=== PATIENT | female | born 1980 | race Caucasian/White ===

== ENCOUNTER 2016-11-29 05:55 | Inpatient (IN) | payer BC, OTHER ==
[2016-11-29] MEDS ORDERED: SODIUM CHLORIDE 0.9% 1,000 ML IV STA ×2 (06:20)
[2016-11-29] MEDS ORDERED: ONDANSETRON 4 MG/2 ML VIAL IVP STA (06:20)
[2016-11-29] MEDS ORDERED: MORPHINE SULFATE 4 MG/ML SYRINGE IV STA (06:20)
[2016-11-29] MEDS ORDERED: FAMOTIDINE 20 MG/2 ML VIAL IV STA (06:21)
--- NOTE | 2016-11-29 06:24 | ED ---
Abdominal Pain HPI - General Source: patient, RN notes reviewed Mode of arrival: ambulatory Limitations: no limitations - History of Present Illness MD Complaint: abdominal pain, flank pain <Kev Rincon - Last Filed: 11/29/16 06:59> <Jean Paul Monson - Last Filed: 11/29/16 09:34> - General Chief Complaint: GI Bleed Stated Complaint: vomiting blood, abd pain Time Seen by Provider: 11/29/16 06:10 - History of Present Illness Initial Comments: This is a 36-year-old female history of non-Hodgkin's lymphoma stage II several years ago who is had 14 days of epigastric pain that they have very bad. Severe radiating to the right flank area. She had nausea and vomiting and vomited so hard she states she vomited up 2 small quarter size spots of blood. She states the pain is burning in nature and again radiates up from the umbilicus up into the lower chest and right flank area. She has no known history of gallbladder disease no known history of ulcers she does occasionally drink alcohol and smokes a half a pack of cigarettes per day. (Kev Rincon) - Related Data Previous Rx's Medication Instructions Recorded traMADol HCL [Ultram] 50 mg PO Q4HR PRN #30 tab 01/24/16 Allergies Allergy/AdvReac Type Severity Reaction Status Date / Time Penicillins Allergy Anaphylaxis Verified 11/29/16 06:07 tetanus and diphtheria Allergy Swelling Verified 11/29/16 06:07 toxoids [tetanus & diphtheria toxoids] Review of Systems ROS Other: All systems not noted in ROS Statement are negative. <Kev Rincon - Last Filed: 11/29/16 06:59> ROS Other: All systems not noted in ROS Statement are negative. <Jean Paul Monson - Last Filed: 11/29/16 09:34> ROS Statement: Those systems with pertinent positive or pertinent negative responses have been documented in the HPI. 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 Pt states she does not take any meds for her lupus for 2 years since she has no insurance History of Any Multi-Drug Resistant Organisms: None Reported Past Surgical History: Appendectomy, Tubal Ligation Additional Past Surgical History / Comment(s): eye -muscle pin for lazy eye, ORAL SX TO REMOVED 3 TEETH AND INFECTED TISSUE HAD DRAINAGE TUBE. Past Anesthesia/Blood Transfusion Reactions: No Reported Reaction Past Psychological History: No Psychological Hx Reported Smoking Status: Current every day smoker Past Alcohol Use History: Occasional Past Drug Use History: None Reported - Past Family History Mother Additional Family Medical History / Comment(s): mom has CP and heart MURMUR Father Family Medical History: Hypertension Additional Family Medical History / Comment(s): 2 heart attacks, diverticulitis <Kev Rincon - Last Filed: 11/29/16 06:59> General Exam Limitations: no limitations General appearance: alert, anxious, in distress Head exam: Present: atraumatic, normocephalic, normal inspection Eye exam: Present: normal appearance, PERRL, EOMI. Absent: scleral icterus, conjunctival injection, periorbital swelling ENT exam: Present: mucous membranes dry Neck exam: Present: normal inspection. Absent: tenderness, meningismus, lymphadenopathy Respiratory exam: Present: normal lung sounds bilaterally, chest wall tenderness (Some tenderness palpation over the xiphoid and costochondral margin on the right.). Absent: respiratory distress, wheezes, rales, rhonchi, stridor Cardiovascular Exam: Present: regular rate, normal rhythm, normal heart sounds. Absent: systolic murmur, diastolic murmur, rubs, gallop, clicks GI/Abdominal exam: Present: soft, tenderness (Some epigastric tenderness to right upper quadrant tenderness patient will not allow me to fully examine her abdomen however.), normal bowel sounds. Absent: distended, guarding, rebound, rigid Rectal exam: Present: deferred Extremities exam: Present: normal inspection, full ROM, normal capillary refill. Absent: tenderness, pedal edema, joint swelling, calf tenderness Back exam: Present: normal inspection Neurological exam: Present: alert, oriented X3, CN II-XII intact Psychiatric exam: Present: normal affect, anxious Skin exam: Present: warm, dry, intact, normal color. Absent: rash <Kev Rincon - Last Filed: 11/29/16 06:59> <Jean Paul Monson - Last Filed: 11/29/16 09:34> - General Exam Comments Initial Comments: This is a well-developed well-nourished awake alert oriented history female ( SergeyKev) Course <Kev Rincon - Last Filed: 11/29/16 06:59> <Jean Paul Monson - Last Filed: 11/29/16 09:34> Vital Signs 11/29/16 11/29/16 11/29/16 06:05 06:20 06:37 Temperature 98 F Pulse Rate 81 68 Respiratory 24 16 Rate Blood Pressure 139/92 157/100 132/83 O2 Sat by Pulse 99 Oximetry 11/29/16 11/29/16 07:34 09:15 Temperature 98.5 F 97.5 F L Pulse Rate 66 72 Respiratory 22 18 Rate Blood Pressure 130/62 118/57 O2 Sat by Pulse 97 95 Oximetry - Reevaluation(s) Reevaluation #1: 11/29/16 06:59 The patient's care will be endorsed to Dr. Monson who will make the final disposition. (Kev Rincon) Medical Decision Making - Lab Data Result diagrams: 11/29/16 06:14 11/29/16 06:14 <Kev Rincon - Last Filed: 11/29/16 06:59> - Lab Data Result diagrams: 11/29/16 06:14 11/29/16 06:14 - Radiology Data Radiology results: report reviewed (Gallbladder ultrasound positive for cholelithiasis) <Jean Paul Monson - Last Filed: 11/29/16 09:34> - Medical Decision Making Patient was reevaluated following pain medication and has moderate tenderness right upper quadrant and epigastric region. Ultrasound positive for cholelithiasis. Case discussed with Dr. Man, who will admit for hospital call. Patient updated. (Jean Paul Monson) - Lab Data Lab Results 11/29/16 11/29/16 11/29/16 Range/Units 06:14 06:14 06:14 WBC 15.3 H (3.8-10.6) k/uL RBC 4.97 (3.80-5.40) m/uL Hgb 15.6 (11.4-16.0) gm/dL Hct 45.4 (34.0-46.0) % MCV 91.3 (80.0-100.0) fL MCH 31.3 (25.0-35.0) pg MCHC 34.3 (31.0-37.0) g/dL RDW 13.8 (11.5-15.5) % Plt Count 326 (150-450) k/uL Neutrophils % 80 % Lymphocytes % 13 % Monocytes % 4 % Eosinophils % 1 % Basophils % 0 % Neutrophils # 12.3 H (1.3-7.7) k/uL Lymphocytes # 2.0 (1.0-4.8) k/uL Monocytes # 0.6 (0-1.0) k/uL Eosinophils # 0.2 (0-0.7) k/uL Basophils # 0.1 (0-0.2) k/uL PT (9.0-12.0) sec INR (<1.2) APTT (22.0-30.0) sec Sodium 140 (137-145) mmol/L Potassium 4.1 (3.5-5.1) mmol/L Chloride 104 (98-107) mmol/L Carbon Dioxide 23 (22-30) mmol/L Anion Gap 13 mmol/L BUN 10 (7-17) mg/dL Creatinine 0.54 (0.52-1.04) mg/dL Est GFR (MDRD) Af Amer >60 (>60 ml/min/1.73 sqM) Est GFR (MDRD) Non-Af >60 (>60 ml/min/1.73 sqM) Glucose 101 H (74-99) mg/dL Calcium 9.3 (8.4-10.2) mg/dL Total Bilirubin 0.7 (0.2-1.3) mg/dL AST 16 (14-36) U/L ALT 26 (9-52) U/L Alkaline Phosphatase 52 (38-126) U/L Total Creatine Kinase 33 (30-135) U/L CK-MB (CK-2) 0.4 (0.0-2.4) ng/mL CK-MB (CK-2) Rel Index 1.2 Troponin I <0.012 (0.000-0.034) ng/mL Total Protein 7.3 (6.3-8.2) g/dL Albumin 4.5 (3.5-5.0) g/dL Amylase 45 (30-110) U/L Lipase 60 (23-300) U/L Urine Color Urine Appearance (Clear) Urine pH (5.0-8.0) Ur Specific [place] (1.001-1.035) Urine Protein (Negative) Urine Glucose (UA) (Negative) Urine Ketones (Negative) Urine Blood (Negative) Urine Nitrite (Negative) Urine Bilirubin (Negative) Urine Urobilinogen (<2.0) mg/dL Ur Leukocyte Esterase (Negative) Blood Type Blood Type Recheck Antibody Screen Spec Expiration Date 11/29/16 11/29/16 11/29/16 Range/Units 06:14 06:14 06:40 WBC (3.8-10.6) k/uL RBC (3.80-5.40) m/uL Hgb (11.4-16.0) gm/dL Hct (34.0-46.0) % MCV (80.0-100.0) fL MCH (25.0-35.0) pg MCHC (31.0-37.0) g/dL RDW (11.5-15.5) % Plt Count (150-450) k/uL Neutrophils % % Lymphocytes % % Monocytes % % Eosinophils % % Basophils % % Neutrophils # (1.3-7.7) k/uL Lymphocytes # (1.0-4.8) k/uL Monocytes # (0-1.0) k/uL Eosinophils # (0-0.7) k/uL Basophils # (0-0.2) k/uL PT 10.0 (9.0-12.0) sec INR 1.0 (<1.2) APTT 24.4 (22.0-30.0) sec Sodium (137-145) mmol/L Potassium (3.5-5.1) mmol/L Chloride (98-107) mmol/L Carbon Dioxide (22-30) mmol/L Anion Gap mmol/L BUN (7-17) mg/dL Creatinine (0.52-1.04) mg/dL Est GFR (MDRD) Af Amer (>60 ml/min/1.73 sqM) Est GFR (MDRD) Non-Af (>60 ml/min/1.73 sqM) Glucose (74-99) mg/dL Calcium (8.4-10.2) mg/dL Total Bilirubin (0.2-1.3) mg/dL AST (14-36) U/L ALT (9-52) U/L Alkaline Phosphatase (38-126) U/L Total Creatine Kinase (30-135) U/L CK-MB (CK-2) (0.0-2.4) ng/mL CK-MB (CK-2) Rel Index Troponin I (0.000-0.034) ng/mL Total Protein (6.3-8.2) g/dL Albumin (3.5-5.0) g/dL Amylase (30-110) U/L Lipase (23-300) U/L Urine Color Yellow Urine Appearance Clear (Clear) Urine pH 8.0 (5.0-8.0) Ur Specific [place] 1.015 (1.001-1.035) Urine Protein Negative (Negative) Urine Glucose (UA) Negative (Negative) Urine Ketones Negative (Negative) Urine Blood Negative (Negative) Urine Nitrite Negative (Negative) Urine Bilirubin Negative (Negative) Urine Urobilinogen <2.0 (<2.0) mg/dL Ur Leukocyte Esterase Negative (Negative) Blood Type A Positive Blood Type Recheck No Antibody Screen NEGATIVE Spec Expiration Date 12/02/2016 - 2314 Disposition <Kev Rincon - Last Filed: 11/29/16 06:59> Decision Time: 09:34 <Jean Paul Monson - Last Filed: 11/29/16 09:34> Clinical Impression: Abdominal pain, Cholelithiasis Disposition: ADMITTED IP TO THIS [facility] Referrals: Emily Kiran DO [Primary Care Provider] - 1-2 days
[2016-11-29 06:42] LABS: Basophils # (A) 0.1 k/uL (0-0.2); Basophils % (A) 0 %; CH 32.3; CHCM 35.5; Eosinophils # (A) 0.2 k/uL (0-0.7); Eosinophils % (A) 1 %; HCT 45.4 % (34.0-46.0); HDW 2.38; HGB 15.6 gm/dL (11.4-16.0); Luc # (Auto) 0.08; Luc % (Auto) 1; Lymphocytes % (A) 13 %; MCH 31.3 pg (25.0-35.0); MCHC 34.3 g/dL (31.0-37.0); MCV 91.3 fL (80.0-100.0); Mean Platelet Volume 7.5; Monocytes # (A) 0.6 k/uL (0-1.0); Monocytes % (A) 4 %; Neutrophils # (A) 12.3 k/uL (1.3-7.7); Neutrophils % (A) 80 %; RBC 4.97 m/uL (3.80-5.40); RDW 13.8 % (11.5-15.5); WBC 15.3 k/uL (3.8-10.6); WBC (Perox) 15.35
[2016-11-29 06:51] LABS: Partial Thromboplastin Time 24.4 sec (22.0-30.0)
[2016-11-29 06:53] LABS: ALT 26 U/L (9-52); AST 16 U/L (14-36); Alkaline Phosphatase 52 U/L (38-126); Amylase 45 U/L (30-110); Anion Gap 13 mmol/L; Blood Urea Nitrogen 10 mg/dL (7-17); Calcium 9.3 mg/dL (8.4-10.2); Carbon Dioxide 23 mmol/L (22-30); Chloride 104 mmol/L (98-107); Glucose 101 mg/dL (74-99); Non-African American GFR(MDRD) >60 (>60 ml/min/1.73 sqM); Potassium 4.1 mmol/L (3.5-5.1); Sodium 140 mmol/L (137-145); Total Bilirubin 0.7 mg/dL (0.2-1.3); Total Protein 7.3 g/dL (6.3-8.2)
[2016-11-29 06:56] LABS: Appearance,Urine Clear (Clear); Bilirubin,Urine Negative (Negative); Glucose,Urine (UA) Negative (Negative); Ketones,Urine Negative (Negative); Leukocyte Esterase,Urine Negative (Negative); Nitrite,Urine Negative (Negative); Protein,Urine Negative (Negative); Specific Gravity,Urine 1.015 (1.001-1.035); UA Billing (MACRO vs. MICRO) CHEM; Urobilinogen,Urine <2.0 mg/dL (<2.0)
[2016-11-29 07:10] LABS: Creatine Kinase 33 U/L (30-135)
[2016-11-29] MEDS ORDERED: HYDROmorphone 1 MG/ML 1 ML SYRINGE IVP STA (07:18)
[2016-11-29 07:23] LABS: Creatine Kinase MB 0.4 ng/mL (0.0-2.4); Troponin I <0.012 ng/mL (0.000-0.034)
--- NOTE | 2016-11-29 09:21 | US ---
EXAMINATION TYPE: US gallbladder DATE OF EXAM: 11/29/2016 COMPARISON: CLINICAL HISTORY: Pain. N/V. Hx of non-Hodgkin's lymphoma. EXAM MEASUREMENTS: Liver Length: 18.6 cm Gallbladder Wall: 0.2 cm CBD: 0.5 cm CHD: 0.7 cm Right Kidney: 11.8 x 6.1 x 4.6 cm Pancreas: wnl. main pancreatic duct = 1.3 mm Liver: enlarged. No focal lesions or masses seen. Gallbladder: Two echogenic foci seen with shadowing, the one at neck measuring = 2.0 x 1.8 cm and di d not appear to move when patient turned LLD. Sludge seen. Evidence for sonographic Angulo's sign: neg CBD: CHD appears dilated. Right Kidney: wnl The pancreas is unremarkable. The liver is prominent measuring 18.6 cm. There are 2 prominent gallstones within the gallbladder. The gallbladder wall measures 2 mm. The dist al common hepatic duct measures 7 mm. There is no sonographic Angulo's sign. The right kidney is unremarkable. Limited views of the aorta and IVC are normal. IMPRESSION: CHOLELITHIASIS.
[2016-11-29] MEDS ORDERED: ONDANSETRON 4 MG/2 ML VIAL IVP PRN (09:34)
[2016-11-29] MEDS ORDERED: NALOXONE 0.4 MG/ML 1 ML VIAL IV PRN (09:34)
[2016-11-29] MEDS ORDERED: SODIUM CHLORIDE 0.9% 1,000 ML IV SCH (09:45)
[2016-11-29] MEDS: HYDROmorphone 1 MG/ML 1 ML SYRINGE IV PRN ×3 (11:04→20:12)
--- NOTE | 2016-11-29 12:19 | P.PN ---
Progress Note - Text Please see full dictated H&P. Patient presents with over a 24-hour history of right upper quadrant abdominal pain. She had a kuhn lettuce tomato subway sandwich within 2-3 hours had severe epigastric and right upper quadrant abdominal pain. She had no relief of her pain after taking Motrin as well as naproxen. Her pain grew worse since her presentation to the emergency room. Laboratory exam consistent with leukocytosis. On exam she has localized right upper quadrant peritonitis. I personally reviewed her ultrasound consistent with the stone impacted along the infundibulum. Multiple large gallstones identified. Clinical features including diagnostic studies consistent with acute cholecystitis. Benefits and risks of laparoscopic cholecystectomy described. Will start antibiotics. Nothing by mouth after minute for surgery in the morning.
[2016-11-29] MEDS: PANTOPRAZOLE 40 MG/10 ML VIAL IVP SCH (13:00)
[2016-11-29] MEDS: LEVOFLOXACIN 500MG-D5W PMX 500 MG in DEXTROSE/WATER 1 100ML.BAG IVPB SCH (13:00)
[2016-11-29] MEDS: METOCLOPRAMIDE 5 MG/ML 2 ML VIAL IVP PRN (20:10)
[2016-11-30] MEDS: METOCLOPRAMIDE 5 MG/ML 2 ML VIAL IVP PRN (06:38)
--- NOTE | 2016-11-30 08:00 | P.GSHP ---
History of Present Illness H&P Date: 11/29/16 CHIEF COMPLAINT: Cholecystitis HISTORY OF PRESENT ILLNESS: The patient is a 36-year-old female who presents with history of epigastric including right upper quadrant abdominal pain. She underwent diagnostic studies for her gallbladder. Separately her clinical picture was consistent with cholecystitis. Now she presents for surgical intervention. PAST MEDICAL HISTORY: Please see list PAST SURGICAL HISTORY: Please see list MEDICATIONS: Please see list ALLERGIES: Denies. SOCIAL HISTORY: No illicit drug use or recent tobacco use FAMILY HISTORY: Pertinent for gallbladder disease REVIEW OF ORGAN SYSTEMS: CONSTITUTIONAL: No reports of fevers or chills. HEENT: Denies any troubles with the vision or hearing. ENDOCRINE: No reports of hypothyroidism. No diabetes. RESPIRATORY: No recent pneumonias. CARDIOVASCULAR: Denies chest pain or palpitations GI: No blood in stools or constipation. MUSCULOSKELETAL: Has occasional joint pain including back pain. NEURO: No seizure disorders or headaches. No recent stroke. PSYCH: No depression or suicidal ideation. HEMATOLOGIC: No personal or family history of DVTs or pulmonary emboli. PHYSICAL EXAM: VITAL SIGNS: Afebrile vital signs stable GENERAL: Well-developed pleasant in no acute distress. HEENT: No scleral icterus. Extraocular movements grossly intact. Moist buccal mucosa. NECK: Supple without lymphadenopathy. CHEST: Unlabored respirations. Equal bilateral excursions. CARDIOVASCULAR: Regular rate regular rhythm rhythm. Distal 2+ pulses. ABDOMEN: Soft, nondistended. Tender along the epigastrium and right upper quadrant. MUSCULOSKELETAL: No clubbing, cyanosis, or edema. NEURO: Cranial nerves II to XII within normal limits. No focal or lateralizing signs. PSYCH: Alert and oriented to person, place and time. ASSESSMENT: 1. Epigastric and right upper quadrant abdominal pain 2. Chronic cholecystitis 3. Symptomatic gallstones. PLAN: 1. Will need a laparoscopic cholecystectomy possible open. Benefits and risks were described. 2. Heparin for DVT prophylaxis 5000 units. 3. Antibiotic prophylaxis. 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 Pt states she does not take any meds for her lupus for 2 years since she has no insurance History of Any Multi-Drug Resistant Organisms: None Reported Past Surgical History: Appendectomy, Tubal Ligation Additional Past Surgical History / Comment(s): eye -muscle pin for lazy eye, ORAL SX TO REMOVED 3 TEETH AND INFECTED TISSUE HAD DRAINAGE TUBE. Past Anesthesia/Blood Transfusion Reactions: No Reported Reaction Past Psychological History: No Psychological Hx Reported Additional Psychological History / Comment(s): LIVES AT HOME WITH SPOUSE AND 5 CHILDREN. Smoking Status: Current every day smoker Past Alcohol Use History: Occasional Additional Past Alcohol Use History / Comment(s): STARTED SMOKING AT AGE 18- SMOKES < 1/2 PPD Past Drug Use History: None Reported - Past Family History Mother Additional Family Medical History / Comment(s): mom has CP and heart MURMUR Father Family Medical History: Hypertension Additional Family Medical History / Comment(s): 2 heart attacks, diverticulitis Medications and Allergies Allergies Allergy/AdvReac Type Severity Reaction Status Date / Time Penicillins Allergy Anaphylaxis Verified 11/29/16 10:45 tetanus and diphtheria Allergy Swelling Verified 11/29/16 10:45 toxoids [tetanus & diphtheria toxoids] Surgical - Exam Vital Signs Temp Pulse Resp BP Pulse Ox 98 F 81 24 139/92 99 11/29/16 06:05 11/29/16 06:05 11/29/16 06:05 11/29/16 06:05 11/29/16 06:05 Results - Labs 11/29/16 06:14 11/29/16 06:14 Abnormal Lab Results - Last 24 Hours (Table) 11/29/16 11/29/16 Range/Units 06:14 06:14 WBC 15.3 H (3.8-10.6) k/uL Neutrophils # 12.3 H (1.3-7.7) k/uL Glucose 101 H (74-99) mg/dL Diabetes panel 11/29/16 Range/Units 06:14 Sodium 140 (137-145) mmol/L Potassium 4.1 (3.5-5.1) mmol/L Chloride 104 (98-107) mmol/L Carbon Dioxide 23 (22-30) mmol/L BUN 10 (7-17) mg/dL Creatinine 0.54 (0.52-1.04) mg/dL Glucose 101 H (74-99) mg/dL Calcium 9.3 (8.4-10.2) mg/dL AST 16 (14-36) U/L ALT 26 (9-52) U/L Alkaline Phosphatase 52 (38-126) U/L Total Protein 7.3 (6.3-8.2) g/dL Albumin 4.5 (3.5-5.0) g/dL Calcium panel 11/29/16 Range/Units 06:14 Calcium 9.3 (8.4-10.2) mg/dL Albumin 4.5 (3.5-5.0) g/dL Pituitary panel 11/29/16 Range/Units 06:14 Sodium 140 (137-145) mmol/L Potassium 4.1 (3.5-5.1) mmol/L Chloride 104 (98-107) mmol/L Carbon Dioxide 23 (22-30) mmol/L BUN 10 (7-17) mg/dL Creatinine 0.54 (0.52-1.04) mg/dL Glucose 101 H (74-99) mg/dL Calcium 9.3 (8.4-10.2) mg/dL Adrenal panel 11/29/16 Range/Units 06:14 Sodium 140 (137-145) mmol/L Potassium 4.1 (3.5-5.1) mmol/L Chloride 104 (98-107) mmol/L Carbon Dioxide 23 (22-30) mmol/L BUN 10 (7-17) mg/dL Creatinine 0.54 (0.52-1.04) mg/dL Glucose 101 H (74-99) mg/dL Calcium 9.3 (8.4-10.2) mg/dL Total Bilirubin 0.7 (0.2-1.3) mg/dL AST 16 (14-36) U/L ALT 26 (9-52) U/L Alkaline Phosphatase 52 (38-126) U/L Total Protein 7.3 (6.3-8.2) g/dL Albumin 4.5 (3.5-5.0) g/dL
--- NOTE | 2016-11-30 08:03 | P.PN ---
Progress Note - Text Patient seen and evaluated. We'll proceed with laparoscopic cholecystectomy.
[2016-11-30 08:05] LABS: Basophils % (A) 0 %; CH 31.5; CHCM 34.6; Eosinophils # (A) 0.2 k/uL (0-0.7); Eosinophils % (A) 3 %; HCT 36.4 % (34.0-46.0); HDW 2.42; Luc # (Auto) 0.09; Luc % (Auto) 1; Lymphocytes # (A) 1.9 k/uL (1.0-4.8); Lymphocytes % (A) 29 %; MCH 31.7 pg (25.0-35.0); MCHC 34.6 g/dL (31.0-37.0); MCV 91.6 fL (80.0-100.0); Mean Platelet Volume 6.7; Monocytes # (A) 0.4 k/uL (0-1.0); Monocytes % (A) 5 %; Neutrophils # (A) 4.1 k/uL (1.3-7.7); Neutrophils % (A) 62 %; RBC 3.97 m/uL (3.80-5.40); RDW 12.8 % (11.5-15.5); WBC 6.6 k/uL (3.8-10.6); WBC (Perox) 7.01
[2016-11-30] MEDS ORDERED: fentaNYL (PF) 50 MCG/ML 2 ML AMP ONE (08:10)
[2016-11-30] MEDS ORDERED: GLYCOPYRROLATE 0.2 MG/ML 2 ML VIAL ONE (08:10)
[2016-11-30] MEDS ORDERED: LIDOCAINE 1% INJ 10MG/ML (20 ML MDV) ONE (08:10)
[2016-11-30] MEDS ORDERED: IV FLUID CONTINUATION 1,000 ML IV ONE (08:10)
[2016-11-30] MEDS ORDERED: SUCCINYLCHOLINE CHLORIDE 100 MG/5 ML SYR IV ONE (08:10)
[2016-11-30] MEDS ORDERED: PROPOFOL 10 MG/ML 20 ML VIAL IV ONE (08:10)
[2016-11-30] MEDS ORDERED: MIDAZOLAM 2 MG/2 ML VIAL ONE (08:10)
[2016-11-30] MEDS ORDERED: ONDANSETRON 4 MG/2 ML VIAL ONE (08:10)
[2016-11-30] MEDS ORDERED: NEOSTIGMINE 1 MG/ML 10 ML VIAL ONE (08:10)
[2016-11-30] MEDS ORDERED: KETOROLAC 30 MG/ML 1 ML VIAL ONE (08:10)
[2016-11-30] MEDS ORDERED: ROCURONIUM BROMIDE 10 MG/ML 10 ML VIAL IV ONE (08:10)
[2016-11-30 08:12] LABS: HGB 12.6 gm/dL (11.4-16.0)
[2016-11-30 08:26] LABS: ALT 30 U/L (9-52); AST 21 U/L (14-36); Alkaline Phosphatase 43 U/L (38-126); Anion Gap 8 mmol/L; Blood Urea Nitrogen 7 mg/dL (7-17); Calcium 8.3 mg/dL (8.4-10.2); Carbon Dioxide 23 mmol/L (22-30); Chloride 108 mmol/L (98-107); Glucose 88 mg/dL (74-99); Non-African American GFR(MDRD) >60 (>60 ml/min/1.73 sqM); Potassium 3.8 mmol/L (3.5-5.1); Sodium 139 mmol/L (137-145); Total Bilirubin 1.2 mg/dL (0.2-1.3); Total Protein 5.5 g/dL (6.3-8.2)
[2016-11-30] MEDS ORDERED: BUPIVACAINE (PF) 0.25% 30 ML VIAL SQ ONE ×2 (08:29)
[2016-11-30] MEDS ORDERED: LACTATED RINGERS 1,000 ML IV ONE (08:38)
[2016-11-30] MEDS ORDERED: PANTOPRAZOLE 40 MG/10 ML VIAL IV SCH (09:00)
[2016-11-30] MEDS: PANTOPRAZOLE 40 MG/10 ML VIAL IVP SCH (09:00)
[2016-11-30] MEDS ORDERED: HYDROcodone/APAP 5-325MG 1 EACH TAB PO PRN (09:27)
--- NOTE | 2016-11-30 09:27 | P.OP ---
Date of Procedure: 11/30/16 Preoperative Diagnosis: Postoperative Diagnosis: Procedure(s) Performed: Implants: Indications for Procedure: Operative Findings: Description of Procedure: SURGEON: DEIRDRE MEJIAS MD [employer] COACH: None. PREOPERATIVE DIAGNOSES: 1. Acute cholecystitis. 2. Leukocytosis. 3. Right upper quadrant peritonitis. 4. Symptomatic gallstones. 5. History of tobacco abuse. 6. Pituitary tumor. 7. Lupus. 8. Non-Hodgkin's lymphoma, family history. POSTOPERATIVE DIAGNOSES: 1. Acute cholecystitis. 2. Leukocytosis. 3. Right upper quadrant peritonitis. 4. Symptomatic gallstones. 5. History of tobacco abuse. 6. Pituitary tumor. 7. Lupus. 8. Non-Hodgkin's lymphoma, family history. OPERATION: Laparoscopic cholecystectomy ANESTHESIA: General with local anesthetic. ESTIMATED BLOOD LOSS: 10 mL. SPECIMENS REMOVED: Gallbladder. COMPLICATIONS: None. INDICATIONS: The patient is a 36-year-old female who presents with right upper quadrant peritonitis, symptomatic gallstones and acute cholelcystitis. Surgical intervention with a laparoscopic cholecystectomy was described at length including injury to the biliary tree, bleeding, infection, need for further surgery. Informed consent was obtained. DESCRIPTION OF THE PROCEDURE: The patient was brought to the operating room, laid in supine position. After general induction, the abdomen was prepped and draped in a standard sterile fashion. Prior to incision, a timeout protocol was confirmed with surgical team regarding patient's name, procedure to be performed including preoperative medications for which she had received heparin 5000 units subcutaneously as well as bilateral SCDs for DVT prophylaxis. A transverse 5 mm incision was made above the umbilicus and off to the right of the midline. Please note the skin was localized prior to incision. A 0 degree 5-mm laparoscopic trocar entry was performed and entered into the peritoneal cavity. Diagnostic laparoscopy confirmed no injury to bowel, viscera or mesentery. The liver serosa was completely unremarkable. Next, two 5 mm trocars were placed along the right costal margin followed by a 11 mm port at the left upper quadrant. The patient was placed in steep reverse Trendelenburg position with the right side up. The gallbladder fundus was retracted over the dome of the liver. Initial attention was brought to the infundibulum which was gently retracted in the inferior lateral approach. Using a Kittner, the cystic duct including the cystic artery was carefully skeletonized. Using a large clip driver engineer 2 clips were placed proximally, and 2 clips was placed distally along the cystic duct and then cut. Again care was taken to avoid any injury to the biliary tree as the common bile duct was visualized during this portion of dissection. Next, the cystic artery was clipped twice proximally, once distally and then cauterized. Electro-Bovie cautery was used to remove the gallbladder from the hepatic fossa without decompression of the gallbladder. Hemostasis was checked and found to be adequate. The gallbladder was removed from the abdominal cavity using an Endo Catch bag and passed off for further pathological analysis. The fascia was widened to accommodate extremely large gallstones over 3-4 cm in size. All instruments and pneumoperitoneum were removed from the abdominal cavity. The fascial was reapproximated with 0 Vicryl and Phil Lemons for the 11-mm port site. The rest of incisions were reapproximated using 4-0 Monocryl in an interrupted subcuticular fashion. A total of 20 mL of 0.5% Marcaine with was infiltrated to all wounds for postop analgesia. Dermabond was applied to the skin. At the large incision, Optifoam dressing was applied. At the end of the procedure, needle, sponge, and instrument count was verified correct by chief ophthalmic technician. The patient had tolerated the procedure well and was taken to postanesthesia care unit in stable condition. Intraoperative films were discussed and reviewed with the patient's family who were pleased with the level of care. FINDINGS: 1. Acute cholecystitis with large 3-4 cm symptomatic gallstones 2. Unremarkable liver surface.
[2016-11-30] MEDS ORDERED: HYDROmorphone 1 MG/ML 1 ML SYRINGE IVP ONE ×2 (09:29→09:34)
[2016-11-30] MEDS ORDERED: KETOROLAC 30 MG/ML 1 ML VIAL IVP SCH (10:00)
[2016-11-30 10:46] VITALS: RESP 16; TEMP 97.4
[2016-11-30 11:30] VITALS: BP 107/66; PULSE 54
--- NOTE | 2016-11-30 12:19 | P.PN ---
Progress Note - Text Patient is clinically doing well this afternoon. Patient may be discharged home.
[2016-11-30] MEDS: LEVOFLOXACIN 500MG-D5W PMX 500 MG in DEXTROSE/WATER 1 100ML.BAG IVPB SCH (13:44)
--- NOTE | 2016-11-30 16:08 | P.PN ---
Subjective Principal diagnosis: Acute cholecystitis with gallstones The patient is a 36-year-old female postop day 0 status post laparoscopic cholecystectomy. She reports improvement of her abdominal pain. Intraoperative findings were described including extremely large gallstones requiring a larger incision of left upper quadrant. She denies any severe nausea at this time. She is eager to go home. Objective - Vital Signs Vital signs: Vital Signs Temp 97.4 F L 11/30/16 10:00 Pulse 54 L 11/30/16 11:15 Resp 16 11/30/16 11:15 BP 107/66 11/30/16 11:15 Pulse Ox 97 11/30/16 11:15 Intake & Output 11/29/16 11/30/16 11/30/16 18:59 06:59 18:59 Intake Total 0 1200 Output Total 201 5 Balance -201 0 1195 Intake: IV 1200 Oral 0 Output: Urine 200 Emesis 1 Estimated Blood Loss 5 Other: Voiding Method Toilet # Voids 3 2 - Exam GENERAL: Well developed and in no acute distress. Pleasant. HEENT: No sclera icterus. Extraocular movements grossly intact. Moist buccal mucosa. Head is atraumatic, normocephalic. Hears conversational speech. No nasal drainage. NECK: Supple without lymphadenopathy. No JV distention. CHEST: Non-labored respirations and equal bilateral excursions. CARDIOVASCULAR: Regular rate and rhythm. Palpable 2+ radial pulses. ABDOMEN: Soft, dressing along the left upper quadrant clean dry and intact. Appropriate tenderness along the left upper quadrant. Incisions are clean, dry and intact with Dermabond. MUSCULOSKELETAL: No clubbing, cyanosis or edema. NEUROLOGIC: No focal or lateralizing signs. PSYCH: Appropriate affect. Alert and oriented to person, place and time. - Labs CBC & Chem 7: 11/30/16 07:14 11/30/16 07:14 Labs: Abnormal Lab Results - Last 24 Hours (Table) 11/30/16 Range/Units 07:14 Chloride 108 H (98-107) mmol/L Calcium 8.3 L (8.4-10.2) mg/dL Total Protein 5.5 L (6.3-8.2) g/dL Albumin 3.3 L (3.5-5.0) g/dL Assessment and Plan (1) Acute cholecystitis Status: Acute (2) Tobacco abuse Status: Acute (3) Tobacco abuse counseling Status: Acute (4) Right upper quadrant abdominal pain Status: Acute (5) Peritonitis Status: Acute (6) Cholelithiasis Status: Acute Plan: 1. Patient is clinically stable for discharge. 2. Follow-up in the office in 48-72 hours.
--- NOTE | 2016-11-30 16:11 | P.DS ---
Providers Date of admission: 11/29/16 09:34 Expected date of discharge: 11/30/16 Attending physician: Nicky Camarillo Primary care physician: Emily Kiran - Discharge Diagnosis(es) (1) Abdominal pain Status: Acute (2) Acute cholecystitis Status: Acute (3) Cholelithiasis Status: Acute (4) Peritonitis Status: Acute (5) Tobacco abuse Status: Acute (6) Tobacco abuse counseling Status: Acute Hospital Course: The patient is a 36-year-old female admitted secondary to right upper quadrant peritonitis with gallstones and acute cholecystitis. She had a cholecystectomy. Postoperatively, her pain was well-controlled. Pertinent Studies: Ultrasound consistent with cholecystitis including gallstones Procedures: Laparoscopic cholecystectomy Patient Condition at Discharge: Stable Plan - Discharge Summary New Discharge Prescriptions: New Hydrocodone/Acetaminophen [[place] 5-325] 1 - 2 each PO Q6HR PRN #30 tab PRN Reason: Pain Discharge Medication List Hydrocodone/Acetaminophen [[place] 5-325] 1 - 2 each PO Q6HR PRN #30 tab 11/29/16 [Rx] Follow up Appointment(s)/Referral(s): Nicky Camarillo MD [STAFF PHYSICIAN] - 12/02/16 4:00 pm Emily Kiran DO [Primary Care Provider] - 1-2 days Patient Instructions/Handouts: How to Stop Smoking (DC), Cigarette Smoking and Your Health (GEN), Laparoscopic Cholecystectomy (DC) Activity/Diet/Wound Care/Special Instructions: May shower. No bathtub soaks. Do not remove dressing. Low fat diet. Avoid tobacco for 3 weeks for optimal healing. CALL FOR FEVER, CHILLS, REDNESS OR FOUL SMELLING DRAINAGE FROM INCISIONAL SITES , PAIN OR SWELLING OF LOWER EXTREMITIES, ANY PROBLEMS OR CONCERNS. LIGHT DIET NEXT 24 TO 48 HOURS, DRINK PLENTY OF LIQUIDS. Discharge Disposition: HOME SELF-CARE
== END 2016-11-30 15:20 | disposition home or self-care (01) | DRG 417 ==
LOC: EC 05:55 → 6PED 09:34
PROVIDERS: ADMIT Surgery Plastic and Reconstructive Surgery; ATTEND Surgery Plastic and Reconstructive Surgery
PROC: 0FT44ZZ Resection of Gallbladder, Percutaneous Endoscopic Approach (ICD-10-PCS; principal; 2016-11-30 08:00)
DX: K80.12 Calculus of gallbladder with acute and chronic cholecystitis without obstruction (principal); K65.9 Peritonitis, unspecified; K92.0 Hematemesis; K21.9 Gastro-esophageal reflux disease without esophagitis; D72.829 Elevated white blood cell count, unspecified; F17.210 Nicotine dependence, cigarettes, uncomplicated; D49.7 Neoplasm of unspecified behavior of endocrine glands and other parts of nervous system; T50.906A Underdosing of unspecified drugs, medicaments and biological substances, initial encounter; M25.50 Pain in unspecified joint; M54.9 Dorsalgia, unspecified; Z86.19 Personal history of other infectious and parasitic diseases; Z88.0 Allergy status to penicillin; Z88.7 Allergy status to serum and vaccine; Z82.49 Family history of ischemic heart disease and other diseases of the circulatory system; Z86.69 Personal history of other diseases of the nervous system and sense organs; Z71.6 Tobacco abuse counseling; Z98.51 Tubal ligation status; Z90.49 Acquired absence of other specified parts of digestive tract; Z83.79 Family history of other diseases of the digestive system; Z91.120 Patient's intentional underdosing of medication regimen due to financial hardship; Z91.14 Patient's other noncompliance with medication regimen; Z85.71 Personal history of Hodgkin lymphoma; Z86.2 Personal history of diseases of the blood and blood-forming organs and certain disorders involving the immune mechanism; Z98.811 Dental restoration status
CPT/HCPCS: 36415; 76705; 80053; 81003; 81025; 82150; 82550; 82553; 83690; 84484; 85025; 85610; 85730; 86850; 86900; 86901; 88304; 96361; 96374; 96375; 99285

== ENCOUNTER 2016-12-12 14:54 | Day surgery (SDC) | payer BC, OTHER ==
[2016-12-10 16:01] VITALS: BMI 20.6
[~2016-12-12 14:54] MED LIST: LACTATED RINGERS 1,000 ML IV SCH
--- NOTE | 2016-12-12 14:58 | P.GSHP ---
History of Present Illness H&P Date: 12/12/16 CHIEF COMPLAINT: GERD HISTORY OF PRESENT ILLNESS: The patient is a 36-year-old female who presents reports gastroesophageal reflux disease. Upper endoscopy was offered for further evaluation and management. PAST MEDICAL HISTORY: Please see list. PAST SURGICAL HISTORY: Please see list. MEDICATIONS: Please see list. ALLERGIES: Please see list. SOCIAL HISTORY: No illicit drug use FAMILY HISTORY: No reports of Crohn disease or ulcerative colitis. REVIEW OF ORGAN SYSTEMS: CONSTITUTIONAL: No reports of fevers or chills. GI: Denies any blood in stools or constipation. PHYSICAL EXAM: VITAL SIGNS: Stable GENERAL: Well-developed and pleasant in no acute distress. HEENT: No scleral icterus. Extraocular movements grossly intact. Moist buccal mucosa. NECK: Supple without lymphadenopathy. CHEST: Unlabored respirations. Equal bilateral excursions. CARDIOVASCULAR: Regular rate and rhythm. Distal 2+ pulses. ABDOMEN: Soft, nondistended. MUSCULOSKELETAL: No clubbing, cyanosis, or edema. ASSESSMENT: 1. Gastroesophageal reflux disease PLAN: 1. 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 , HX OF STOMACH ULCERS. , LAP CHOLECYSTECTOMY 11/29/16-STATES INCISIONS HEALING WITH " KNOT " AT ONE INCISION AND DR MEJIAS AWARE. , HAVING NAUSEA AND VOMITING. History of Any Multi-Drug Resistant Organisms: None Reported Past Surgical History: Appendectomy, Cholecystectomy, Tubal Ligation Additional Past Surgical History / Comment(s): eye -muscle pin for lazy eye, ORAL SX TO REMOVED 3 TEETH AND INFECTED TISSUE HAD DRAINAGE TUBE., LAP CHOLECYSTECTOMY 11/29/16. Past Anesthesia/Blood Transfusion Reactions: No Reported Reaction, Motion Sickness Past Psychological History: No Psychological Hx Reported Additional Psychological History / Comment(s): LIVES AT HOME WITH SPOUSE AND 5 CHILDREN. Smoking Status: Current every day smoker Past Alcohol Use History: Rare Additional Past Alcohol Use History / Comment(s): STARTED SMOKING AT AGE 18- SMOKES < 1/2 PPD Past Drug Use History: None Reported - Past Family History Mother Additional Family Medical History / Comment(s): mom has CP and heart MURMUR Father Family Medical History: Hypertension Additional Family Medical History / Comment(s): 2 heart attacks, diverticulitis Medications and Allergies Home Medications Medication Instructions Recorded Confirmed Type No Known Home Medications [No 12/10/16 12/10/16 History Known Home Medications] Allergies Allergy/AdvReac Type Severity Reaction Status Date / Time Penicillins Allergy Anaphylaxis Verified 12/10/16 15:52 tetanus and diphtheria Allergy Swelling Verified 12/10/16 15:52 toxoids [tetanus & diphtheria toxoids]
[2016-12-12 15:09] VITALS: TEMP 98.8
[2016-12-12] MEDS ORDERED: LIDOCAINE 1% 20 ML VIAL (10MG/ML) FOR IV START INTRADERMA ONE (15:19)
[2016-12-12] MEDS ORDERED: PROPOFOL 10 MG/ML 20 ML VIAL IV ONE (15:25)
[2016-12-12] MEDS ORDERED: SODIUM CHLORIDE 0.9% 1,000 ML IV SCH (15:25)
[2016-12-12] MEDS ORDERED: LIDOCAINE 1% INJ 10MG/ML (20 ML MDV) ONE (15:25)
--- NOTE | 2016-12-12 15:38 | P.PCN ---
Date of Procedure: 12/12/16 Preoperative Diagnosis: Postoperative Diagnosis: Procedure(s) Performed: Implants: Indications for Procedure: Operative Findings: Description of Procedure: PREOPERATIVE DIAGNOSIS: Gastroesophageal reflux disease. Personal history of gastric ulcers. POSTOPERATIVE DIAGNOSIS: Gastritis. Gastroesophageal reflux disease. Personal history of gastric ulcers. Diaphragmatic hiatal hernia without obstruction. OPERATION: Esophagogastroduodenoscopy with biopsies along antrum. SURGEON: Nicky Camarillo MD ANESTHESIA: MAC. INDICATIONS: The patient is a 36-year-old female who presents with a history of reflux disease. Benefits and risks of the procedure were described. Informed consent was obtained. DESCRIPTION: The patient was brought into the endoscopy suite and laid in the left lateral decubitus position. An Olympus gastroscope was passed along the posterior oropharynx down to the distal esophagus where the squamocolumnar junction was encountered at 39 cm from the incisors. The stomach was entered and no bile reflux was found. Additional findings are listed below. Biopsies with cold forceps were obtained of the antrum. The first through third portion of the duodenum was examined and unremarkable. Retroflexion of the scope confirmed Hill grade 4 lower esophageal valve. The squamocolumnar junction demostrated early and LA grade A erosive esophagitis. The stomach was desufflated. The patient tolerated the procedure well. FINDINGS: Squamocolumnar junction 36 cm from the incisors. Diaphragmatic hiatus at 39 cm. Hiatal hernia 3 cm. Hill grade 4 lower esophageal valve. LA grade A erosive esophagitis. No active duodenitis. Chronic gastritis. RECOMMENDATIONS: Start medical therapy. Further recommendations pending results of pathology report. Upper endoscopy as needed. Will benefit from antireflux surgical procedure Plan - Discharge Summary New Discharge Prescriptions: No Action No Known Home Medications [No Known Home Medications] Discharge Medication List No Known Home Medications [No Known Home Medications] 12/10/16 [History]
[2016-12-12 15:45] VITALS: BP 94/63; PULSE 74; RESP 16
[2016-12-12 16:11] LABS: Basophils % (A) 0 %; CH 32.5; CHCM 34.3; Eosinophils # (A) 0.3 k/uL (0-0.7); Eosinophils % (A) 4 %; HCT 38.1 % (34.0-46.0); HDW 2.44; HGB 12.6 gm/dL (11.4-16.0); Luc # (Auto) 0.06; Luc % (Auto) 1; Lymphocytes % (A) 28 %; MCH 31.4 pg (25.0-35.0); MCV 95.1 fL (80.0-100.0); Mean Platelet Volume 7.2; Monocytes # (A) 0.4 k/uL (0-1.0); Monocytes % (A) 5 %; Neutrophils # (A) 4.5 k/uL (1.3-7.7); Neutrophils % (A) 62 %; RBC 4.01 m/uL (3.80-5.40); RDW 13.9 % (11.5-15.5); WBC 7.2 k/uL (3.8-10.6); WBC (Perox) 7.75
[2016-12-12 16:31] LABS: ALT 29 U/L (9-52); AST 13 U/L (14-36); Alkaline Phosphatase 40 U/L (38-126); Anion Gap 9 mmol/L; Blood Urea Nitrogen 8 mg/dL (7-17); Calcium 8.7 mg/dL (8.4-10.2); Carbon Dioxide 25 mmol/L (22-30); Chloride 105 mmol/L (98-107); Glucose 76 mg/dL (74-99); Magnesium 1.8 mg/dL (1.6-2.3); Non-African American GFR(MDRD) >60 (>60 ml/min/1.73 sqM); Sodium 139 mmol/L (137-145); Total Bilirubin 0.4 mg/dL (0.2-1.3); Total Protein 5.8 g/dL (6.3-8.2)
== END 2016-12-12 18:03 | disposition home or self-care (01) ==
LOC: ORWHC2ENDO 14:54
PROVIDERS: ATTEND Surgery Plastic and Reconstructive Surgery
DX: K21.0 Gastro-esophageal reflux disease with esophagitis (principal); K29.50 Unspecified chronic gastritis without bleeding; K44.9 Diaphragmatic hernia without obstruction or gangrene; M32.9 Systemic lupus erythematosus, unspecified; Z85.72 Personal history of non-Hodgkin lymphomas; F17.200 Nicotine dependence, unspecified, uncomplicated; Z82.49 Family history of ischemic heart disease and other diseases of the circulatory system; Z87.11 Personal history of peptic ulcer disease; Z88.7 Allergy status to serum and vaccine; Z88.0 Allergy status to penicillin
CPT/HCPCS: 81025; 88305; 80053; 83735; 85025; 88342; 43239; J2001; J2704

== ENCOUNTER 2017-09-28 15:50 | Emergency (ER) | payer BC, OTHER ==
[2017-09-28] MEDS ORDERED: HYDROmorphone 0.5 MG/0.5 ML SYRINGE IVP STA ×2 (16:41→19:10)
[2017-09-28] MEDS ORDERED: ONDANSETRON 4 MG/2 ML VIAL IVP STA (16:41)
[2017-09-28] MEDS ORDERED: SODIUM CHLORIDE 0.9% 1,000 ML IV STA ×3 (16:41→19:55)
[2017-09-28] MEDS ORDERED: ACETAMINOPHEN IV (For NPO) 1,000 MG in EMPTY BAG 1 BAG IVPB STA (16:48)
--- NOTE | 2017-09-28 17:19 | ED ---
General Adult HPI - General Source: patient, RN notes reviewed Mode of arrival: wheelchair Limitations: no limitations <Huber Holloway - Last Filed: 09/28/17 19:51> <Kev Shay - Last Filed: 09/28/17 21:25> - General Chief complaint: Abdominal Pain Stated complaint: kidney problems Time Seen by Provider: 09/28/17 16:28 - History of Present Illness Initial comments: Patient 37-year-old female with a past medical history for nephritis, presented to the emergency room today with a chief complaint of increased flank pain. Patient does admit that pain is greater on the right than the left. She states she's had similar symptoms in the past with nephritis. She states that she has never felt pain on the left side the past. She states she does feel some pressure into the abdomen. No specific pain. She also admits that she felt some tightness to roll earlier today. The patient does admit to symptoms of nausea vomiting. She states symptoms are consistent with for such that the past. Denies any complaints at this time. Patient denies any recent fever, chills, shortness of breath, chest pain, numbness or tingling, dysuria or hematuria, constipation or diarrhea, headaches or visual changes, or any other complaints. (Huber Holloway) - Related Data Home Medications Medication Instructions Recorded Confirmed Diurex 1 tab PO DAILY PRN 09/28/17 09/28/17 Previous Rx's Medication Instructions Recorded Azithromycin [Zithromax Z-pack] 0 mg PO DIRECTED #6 tab 09/28/17 predniSONE 20 mg PO BID #6 tab 09/28/17 traMADol HCl [Ultram] 50 - 100 mg PO Q6H PRN #15 tab 09/28/17 Allergies Allergy/AdvReac Type Severity Reaction Status Date / Time Penicillins Allergy Anaphylaxis Verified 09/28/17 16:45 tetanus and diphtheria Allergy Swelling Verified 09/28/17 16:45 toxoids [tetanus & diphtheria toxoids] Review of Systems ROS Other: All systems not noted in ROS Statement are negative. <Huber Holloway - Last Filed: 09/28/17 19:51> ROS Other: All systems not noted in ROS Statement are negative. <Kev Shay - Last Filed: 09/28/17 21:25> ROS Statement: Those systems with pertinent positive or pertinent negative responses have been documented in the HPI. 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 , HX OF STOMACH ULCERS. , LAP CHOLECYSTECTOMY 11/29/16-STATES INCISIONS HEALING WITH " KNOT " AT ONE INCISION AND DR MEJIAS AWARE. , HAVING NAUSEA AND VOMITING. History of Any Multi-Drug Resistant Organisms: None Reported Past Surgical History: Appendectomy, Cholecystectomy, Tubal Ligation Additional Past Surgical History / Comment(s): eye -muscle pin for lazy eye, ORAL SX TO REMOVED 3 TEETH AND INFECTED TISSUE HAD DRAINAGE TUBE., LAP CHOLECYSTECTOMY 11/29/16. Past Anesthesia/Blood Transfusion Reactions: No Reported Reaction, Motion Sickness Past Psychological History: No Psychological Hx Reported Smoking Status: Current every day smoker Past Alcohol Use History: Rare Past Drug Use History: None Reported - Past Family History Mother Additional Family Medical History / Comment(s): mom has CP and heart MURMUR Father Family Medical History: Hypertension Additional Family Medical History / Comment(s): 2 heart attacks, diverticulitis <Huber Holloway - Last Filed: 09/28/17 19:51> General Exam Limitations: no limitations <Huber Holloway - Last Filed: 09/28/17 19:51> <Kev Shay - Last Filed: 09/28/17 21:25> - General Exam Comments Initial Comments: General: The patient is awake and alert, in no distress, and does not appear acutely ill. Eye: Pupils are equal, round and reactive to light, extra-ocular movements are intact. No nystagmus. There is normal conjunctiva bilaterally. No signs of icterus. Ears, nose, mouth and throat: There are moist mucous membranes and no oral lesions. Neck: The neck is supple, there is no tenderness or JVD. Cardiovascular: There is a regular rate and rhythm. No murmur, rub or gallop is appreciated. Respiratory: Lungs are clear to auscultation, respirations are non-labored, breath sounds are equal. No wheezes, stridor, rales, or rhonchi. Gastrointestinal: Admits soft on palpation. Patient does have tenderness both over left and right flank area. No rebound tenderness. No guarding. Musculoskeletal: Normal ROM, no tenderness. Strength 5/5. Sensation intact. Pulses equal bilaterally 2+. Neurological: A&O x 3. CN II-XII intact, There are no obvious motor or sensory deficits. Coordination appears grossly intact. Speech is normal. Skin: Skin is warm and dry and no rashes or lesions are noted. Psychiatric: Cooperative, appropriate mood & affect, normal judgment. (Huber Holloway) Vital Signs 09/28/17 09/28/17 09/28/17 16:15 16:48 18:44 Temperature 102.1 F H 101.5 F H 101.0 F H Pulse Rate 132 H 128 H 115 H Respiratory 18 20 18 Rate Blood Pressure 138/75 116/59 108/59 O2 Sat by Pulse 98 98 96 Oximetry 09/28/17 19:53 Temperature 100.0 F H Pulse Rate Respiratory Rate Blood Pressure O2 Sat by Pulse Oximetry Medical Decision Making - Lab Data Result diagrams: 09/28/17 17:09 09/28/17 17:09 <Huber Holloway - Last Filed: 09/28/17 19:51> - Lab Data Result diagrams: 09/28/17 17:09 09/28/17 17:09 <Kev Shay - Last Filed: 09/28/17 21:25> - Medical Decision Making Patient's labs been reviewed does show 13,000 white count. Patient is strep positive. Given dose of Rocephin here the emergency room where she states she' s had in the past. Patient does admit to some swelling type feeling to her throat earlier today. She denies any difficulty breathing, swallowing at this time. patient's CT abdomen and pelvis shows no acute abnormality. Patient's remaining labs have been reviewed. Case discussed with attending physician Dr. Shay. (Huber Holloway) The patient was seen and examined. All diagnostics were reviewed. It certainly does appear as though she is a pharyngitis clinically. She tested positive for strep. She is feeling much improved after medications and fluids. Her heart rate is down to approximately 90 on recheck. It is felt as though she is stable for discharge. She does not have any current evidence of nephritis although she does understand that this could potentially occur in the future. Return parameters are discussed. Case is discussed with the PA and I agree with the findings as discussed. (Kev Shay) - Lab Data Lab Results 09/28/17 09/28/17 09/28/17 Range/Units 17:09 17:09 17:09 WBC 13.0 H (3.8-10.6) k/uL RBC 3.98 (3.80-5.40) m/uL Hgb 13.0 (11.4-16.0) gm/dL Hct 38.0 (34.0-46.0) % MCV 95.6 (80.0-100.0) fL MCH 32.7 (25.0-35.0) pg MCHC 34.2 (31.0-37.0) g/dL RDW 13.3 (11.5-15.5) % Plt Count 208 (150-450) k/uL Neutrophils % 86 % Lymphocytes % 7 % Monocytes % 6 % Eosinophils % 0 % Basophils % 0 % Neutrophils # 11.2 H (1.3-7.7) k/uL Lymphocytes # 0.9 L (1.0-4.8) k/uL Monocytes # 0.8 (0-1.0) k/uL Eosinophils # 0.0 (0-0.7) k/uL Basophils # 0.0 (0-0.2) k/uL Sodium 134 L (137-145) mmol/L Potassium 3.9 (3.5-5.1) mmol/L Chloride 97 L (98-107) mmol/L Carbon Dioxide 22 (22-30) mmol/L Anion Gap 15 mmol/L BUN 7 (7-17) mg/dL Creatinine 0.51 L (0.52-1.04) mg/dL Est GFR (CKD-EPI)AfAm >90 (>60 ml/min/1.73 sqM) Est GFR (CKD-EPI)NonAf >90 (>60 ml/min/1.73 sqM) Glucose 103 H (74-99) mg/dL Calcium 9.2 (8.4-10.2) mg/dL Total Bilirubin 1.0 (0.2-1.3) mg/dL AST 19 (14-36) U/L ALT 26 (9-52) U/L Alkaline Phosphatase 80 (38-126) U/L Total Protein 7.2 (6.3-8.2) g/dL Albumin 4.4 (3.5-5.0) g/dL Amylase 38 (30-110) U/L Lipase 25 (23-300) U/L Urine Color Yellow Urine Appearance Cloudy H (Clear) Urine pH 6.0 (5.0-8.0) Ur Specific [place] 1.022 (1.001-1.035) Urine Protein Trace H (Negative) Urine Glucose (UA) Negative (Negative) Urine Ketones Negative (Negative) Urine Blood Trace H (Negative) Urine Nitrite Negative (Negative) Urine Bilirubin Negative (Negative) Urine Urobilinogen <2.0 (<2.0) mg/dL Ur Leukocyte Esterase Negative (Negative) Urine RBC 6 H (0-5) /hpf Urine WBC 3 (0-5) /hpf Ur Squamous Epith Cells 4 (0-4) /hpf Urine Bacteria Rare H (None) /hpf Urine Mucus Few H (None) /hpf Group A Strep Rapid (Negative) 09/28/17 Range/Units 17:09 WBC (3.8-10.6) k/uL RBC (3.80-5.40) m/uL Hgb (11.4-16.0) gm/dL Hct (34.0-46.0) % MCV (80.0-100.0) fL MCH (25.0-35.0) pg MCHC (31.0-37.0) g/dL RDW (11.5-15.5) % Plt Count (150-450) k/uL Neutrophils % % Lymphocytes % % Monocytes % % Eosinophils % % Basophils % % Neutrophils # (1.3-7.7) k/uL Lymphocytes # (1.0-4.8) k/uL Monocytes # (0-1.0) k/uL Eosinophils # (0-0.7) k/uL Basophils # (0-0.2) k/uL Sodium (137-145) mmol/L Potassium (3.5-5.1) mmol/L Chloride (98-107) mmol/L Carbon Dioxide (22-30) mmol/L Anion Gap mmol/L BUN (7-17) mg/dL Creatinine (0.52-1.04) mg/dL Est GFR (CKD-EPI)AfAm (>60 ml/min/1.73 sqM) Est GFR (CKD-EPI)NonAf (>60 ml/min/1.73 sqM) Glucose (74-99) mg/dL Calcium (8.4-10.2) mg/dL Total Bilirubin (0.2-1.3) mg/dL AST (14-36) U/L ALT (9-52) U/L Alkaline Phosphatase (38-126) U/L Total Protein (6.3-8.2) g/dL Albumin (3.5-5.0) g/dL Amylase (30-110) U/L Lipase (23-300) U/L Urine Color Urine Appearance (Clear) Urine pH (5.0-8.0) Ur Specific [place] (1.001-1.035) Urine Protein (Negative) Urine Glucose (UA) (Negative) Urine Ketones (Negative) Urine Blood (Negative) Urine Nitrite (Negative) Urine Bilirubin (Negative) Urine Urobilinogen (<2.0) mg/dL Ur Leukocyte Esterase (Negative) Urine RBC (0-5) /hpf Urine WBC (0-5) /hpf Ur Squamous Epith Cells (0-4) /hpf Urine Bacteria (None) /hpf Urine Mucus (None) /hpf Group A Strep Rapid Positive A (Negative) Disposition Is patient prescribed a controlled substance at d/c from ED?: No <Huber Holloway - Last Filed: 09/28/17 19:51> Is patient prescribed a controlled substance at d/c from ED?: Yes If prescribed controlled substance>3 days was MAPS reviewed?: Prescribed <3 Days Time of Disposition: 21:25 <Kev Shay - Last Filed: 09/28/17 21:25> Clinical Impression: Strep throat, Nausea & vomiting, Sinus tachycardia, Dehydration, Leukocytosis, Pharyngitis, Flank pain, Fever Disposition: HOME SELF-CARE Condition: Good Instructions: Strep Throat (ED), Flank Pain (ED), Dehydration (ED) Additional Instructions: Please use Tylenol and/or Motrin as needed for any pain or fever. Prescriptions: Azithromycin [Zithromax Z-pack] 0 mg PO DIRECTED #6 tab predniSONE 20 mg PO BID #6 tab traMADol HCl [Ultram] 50 - 100 mg PO Q6H PRN #15 tab PRN Reason: Pain Referrals: None,Stated [Primary Care Provider] - 1-2 days
[2017-09-28 17:47] LABS: Basophils % (A) 0 %; Eosinophils % (A) 0 %; Lymphocytes # (A) 0.9 k/uL (1.0-4.8); Lymphocytes % (A) 7 %; MCH 32.7 pg (25.0-35.0); MCHC 34.2 g/dL (31.0-37.0); MCV 95.6 fL (80.0-100.0); Mean Platelet Volume 6.4; Monocytes # (A) 0.8 k/uL (0-1.0); Monocytes % (A) 6 %; Neutrophils # (A) 11.2 k/uL (1.3-7.7); Neutrophils % (A) 86 %; Platelet Count 208 k/uL (150-450); RBC 3.98 m/uL (3.80-5.40); RDW 13.3 % (11.5-15.5)
[2017-09-28 17:48] LABS: Appearance,Urine Cloudy (Clear); Bacteria,Urine Rare /hpf; Bilirubin,Urine Negative (Negative); Blood,Urine Trace (Negative); Color,Urine Yellow; Glucose,Urine (UA) Negative (Negative); Ketones,Urine Negative (Negative); Leukocyte Esterase,Urine Negative (Negative); Mucus,Urine Few /hpf; Nitrite,Urine Negative (Negative); Protein,Urine Trace (Negative); RBC,Urine 6 /hpf (0-5); Specific Gravity,Urine 1.022 (1.001-1.035); Squamous Epithelial Cell,Urine 4 /hpf (0-4); Urobilinogen,Urine <2.0 mg/dL (<2.0); WBC,Urine 3 /hpf (0-5)
[2017-09-28 18:01] LABS: ALT 26 U/L (9-52); AST 19 U/L (14-36); Albumin 4.4 g/dL (3.5-5.0); Alkaline Phosphatase 80 U/L (38-126); Amylase 38 U/L (30-110); Anion Gap 15 mmol/L; Blood Urea Nitrogen 7 mg/dL (7-17); Calcium 9.2 mg/dL (8.4-10.2); Carbon Dioxide 22 mmol/L (22-30); Chloride 97 mmol/L (98-107); Glucose 103 mg/dL (74-99); Lipase 25 U/L (23-300); Potassium 3.9 mmol/L (3.5-5.1); Sodium 134 mmol/L (137-145); Total Protein 7.2 g/dL (6.3-8.2)
[2017-09-28 18:49] VITALS: RESP 18
--- NOTE | 2017-09-28 19:04 | XR ---
EXAMINATION: XR chest 2V DATE AND TIME: 09/28/2017 5:39 PM ORDERING PROVIDER: Huber Holloway CLINICAL INDICATION: abdominal pain TECHNIQUE: PA and lateral COMPARISON: 02/04/2015 DESCRIPTION: The lungs are clear. The pleural spaces are negative. The cardiac silhouette is not enlarged. The mediastinal and pleural silhouettes are unremarkable. The skeletal structures are intact without focal findings. The soft tissues are unremarkable. IMPRESSION: NO ACUTE PROCESS.
--- NOTE | 2017-09-28 19:06 | XR ---
EXAMINATION TYPE: XR KUB 2 views DATE OF EXAM: 09/28/2017 COMPARISON: NONE HISTORY: Abdominal pain, left-sided TECHNIQUE: 2 upright views covering the abdomen and pelvis FINDINGS: There is no pneumoperitoneum. No pneumatosis. The bowel gas pattern is normal. The soft tissues and skeletal structures are unremarkable. IMPRESSION: No acute radiographic process.
--- NOTE | 2017-09-28 19:36 | CT ---
EXAMINATION TYPE: CT abdomen pelvis wo con DATE OF EXAM: 09/28/2017 COMPARISON: 01/15/2016 HISTORY: Patient complains of bilateral flank pain with history of recurrent bouts of nephritis. CT DLP: 783 mGycm Automated exposure control for dose reduction was used. TECHNIQUE: Helical acquisition of images was performed from the lung bases through the pelvis. FINDINGS: LUNG BASES: No significant abnormality is appreciated. LIVER/GB: No significant abnormality is appreciated. PANCREAS: No significant abnormality is seen. SPLEEN: No significant abnormality is seen. ADRENALS: No significant abnormality is seen. KIDNEYS: No significant abnormality is seen. FREE AIR: No free air is visualized RETROPERITONEAL ADENOPATHY: None visualized REPRODUCTIVE ORGANS: No significant abnormality is seen URINARY BLADDER: No significant abnormality is seen. PELVIC ADENOPATHY: None visualized. OSSEOUS STRUCTURES: No significant abnormality is seen. BOWEL: No significant abnormality is seen. IMPRESSION: NO ACUTE PROCESS, CT WITHOUT CONTRAST.
[2017-09-28] MEDS ORDERED: KETOROLAC 30 MG/ML 1 ML VIAL IVP STA (19:44)
[2017-09-28] MEDS ORDERED: cefTRIAXone IN SWFI 1,000 MG/10 ML SYRINGE IVP STA (19:48)
[2017-09-28] MEDS ORDERED: methylPREDNISolone SOD SUCCI 125 MG/2 ML VIAL IV STA (21:26)
[2017-09-28 21:43] VITALS: BP 107/58; PULSE 100; TEMP 97.5
== END 2017-09-28 21:42 | disposition home or self-care (01) ==
LOC: EC 15:50
DX: J02.0 Streptococcal pharyngitis (principal); D72.829 Elevated white blood cell count, unspecified; E86.0 Dehydration; R00.0 Tachycardia, unspecified; F17.200 Nicotine dependence, unspecified, uncomplicated; Z90.49 Acquired absence of other specified parts of digestive tract; Z98.51 Tubal ligation status; Z85.72 Personal history of non-Hodgkin lymphomas; Z92.21 Personal history of antineoplastic chemotherapy; Z88.0 Allergy status to penicillin; Z88.7 Allergy status to serum and vaccine
CPT/HCPCS: 36415; 80053; 82150; 83690; 85025; 81001; 87430; 71046; 74018; 74176; 99285; 96365; 96366 ×3; 96375 ×5; 96376; J2930; J2405; J0696; J1885; J0131; J1170